=== PATIENT | female | born 2005 | race Caucasian/White ===

== ENCOUNTER 2024-10-19 13:16 | Outpatient (REF) | payer OTHER, SELFPAY ==
[2024-10-19 14:46] LABS: MANUAL DIFF FLAG NO
[2024-10-19 15:13] LABS: Basophils Percent Auto 0.9 % (0-2); Eosinophils Absolute Auto 0.1 X10*3/uL (0.0-0.4); Eosinophils Percent Auto 1.7 % (0-4); Hematocrit 39.1 % (37.0-47.0); Hemoglobin 13.1 g/dl (12.0-16.0); Imm Gran Abs Auto 0.01 X10*3/uL (0.00-0.03); Imm Gran Pct Auto 0.2 % (0.0-0.4); Lymphocytes Absolute Auto 1.5 X10*3/uL (1.2-4.9); Mean Corpuscular HGB Conc 33.5 g/dl (31.0-35.0); Mean Corpuscular Volume 86.5 fL (80.0-98.0); Mean Platelet Volume 10.2 fL (9.4-12.3); Monocytes Absolute Auto 0.4 X10*3/uL (0.1-1.2); Monocytes Percent Auto 7.6 % (2-11); Neutrophils Absolute Auto 2.6 x10*3/uL (2.0-8.3); Neutrophils Percent Auto 56.6 % (45-73); Platelet Count 236 X10*3/uL (160-400); Red Blood Count 4.52 X10*6/uL (4.20-5.50); Red Cell Distribution Width 12.7 % (11.0-16.0); White Blood Count 4.6 X10*3/uL (4.8-10.8)
[2024-10-19 15:44] LABS: Alanine Aminotransferase 29 U/L (0-31); Albumin Level 4.6 g/dL (3.5-5.0); Anion Gap 11 (12-20); Aspartate Amino Transferase 24 U/L (5-31); Bilirubin Total 0.8 mg/dL (0.0-1.0); Blood Urea Nitrogen 12 mg/dL (9-16); Carbon Dioxide 26 mmol/L (22-29); Chloride 107 mmol/L (96-108); Estimated Glomerular Filt Rate > 60; Glucose Random 91 mg/dL (60-115); Iron 78 mcg/dL (30-160); Percent Iron Saturation 21 % (15-50); Potassium 4.4 mmol/L (3.3-5.1); Sodium 140 mmol/L (135-145); Total Iron Binding Capacity 364 mcg/dL (228-428); Total Protein 8.3 g/dL (6.5-8.0); Unsaturated Iron Binding 286 ug/dL
[2024-10-19 15:58] LABS: Alkaline Phosphatase 131 U/L (39-117); Free T4 (Free Thyroxine) 1.03 ng/dL (0.71-1.85); TSH reflex Free T4 1.25 uIU/mL (0.32-4.0); Vitamin D 25-OH Total 15.9 ng/mL (>30)
[2024-10-19 16:10] LABS: Folate 10.7 ng/mL (> or = 4.0); Vitamin B12 494 pg/mL (200-900)
== END 2024-10-19 13:17 | disposition home or self-care (01) ==
LOC: HO.LAB 13:16
PROVIDERS: PCP Internal Medicine
DX: Z76.89 Persons encountering health services in other specified circumstances (principal); F32.A Depression, unspecified; F41.9 Anxiety disorder, unspecified; R41.840 Attention and concentration deficit; L65.9 Nonscarring hair loss, unspecified; G47.10 Hypersomnia, unspecified; R00.2 Palpitations; Z00.00 Encounter for general adult medical examination without abnormal findings
CPT/HCPCS: 36415; 80053; 82306; 82607; 82746; 83540; 84439; 84443; 85025

== ENCOUNTER 2024-10-19 13:16 | Outpatient (AMB) | payer OTHER, SELFPAY ==
--- NOTE | 2024-10-19 13:33 | A.OFFPC_ITS ---
Vital Signs 10/19/24 13:35 Height 4 ft 11.84 in Weight 144 lb BMI 28.3 BP 110/76 Blood Pressure Location Lt brachial Position Sitting Pulse 74 Pulse Source Pulse Oximeter Temp 96.9 F Temp Source Temporal Artery Scan Pulse Oximetry (%) 99 Oxygen Delivery Method Room Air Intake Visit Reasons: establish care Intake Note: Patient is a new patient here to establish care for Anxiety, Depression, ADHD. Transferring care from unknown. Medical records have not been requested and have not received. Tubing Oiler Required: No Multi Line Claims Adjuster: Not Required per policy Accompanied by: Self / Same As Patient Allergies No Known Allergies Allergy (Verified 10/19/24 13:44) Medication List - Last Reconciled 10/19/24 by Perla Godoy PA-C No Known Home Meds Tobacco use date assessed: 10/19/24 Dental Screening Dental Screen Date: 10/19/24 Did you have a dental visit in the last 12 months?: Yes Did you have a dental problem in the last 6 months where you did not have access to dental care?: No Was dental information given to patient?: Patient has dentist HPI establish care HPI Details 18-year-old female coming to the office for the 1st time. Presenting with a comprehensive wellness and mental health evaluation. She has experienced anxiety and depression for which she tried several medications including Zoloft, bupropion, and Lexapro but reported significant side effects and insufficient relief. She reports alopecia with substantial hair loss, particularly noted during showers, and has a family history of hair thinning. Suspected sleep apnea is evidenced by bruxism and fatigue upon awakening; an at- home sleep study has been proposed. She experiences intermittent episodes of palpitations and dizziness that typically last around 30 seconds before resolving spontaneously.. ADHD was suspected but no formal diagnosis was recorded. Prior use of Adderall was mentioned. She has a history of consulting a therapist, beneficial, but not re-engaged since age 14. [facility] Surgical History No pertinent past surgical history Family History (Updated 10/19/24 @ 13:50 by Perla Godoy PA-C) Mother Breast cancer Other Mental health disorder Substance use disorder Social History Housing: Apartment Alcohol intake: never Patient Tobacco Use Status: Never used Tobacco e-Cigarette/Vaping Use: Never Used Second Hand Smoke Exposure: No service: No Current occupational status: unemployed Cognitive needs: No Hearing needs: No Vision needs: No Female Reproductive History Menstrual control method: none Total pregnancies: 0 Questionnaire PHQ-9 Over the last 2 weeks, how often have you been bothered by any of the following problems? 1. Little interest or pleasure in doing things: not at all 2. Feeling down, depressed, or hopeless: not at all 3. Trouble falling or staying asleep, or sleeping too much: not at all 4. Feeling tired or having little energy: not at all 5. Poor appetite or overeating: not at all 6. Feeling bad about yourself - or that you are a failure or have let yourself or your family down: not at all 7. Trouble concentrating on things, such as reading the newspaper or watching television: not at all 8. Moving or speaking so slowly that other people could have noticed. Or the opposite - being so fidgety or restless that you have been moving around a lot more than usual: not at all 9. Thoughts that you would be better off or of hurting yourself in some way: not at all Total score: 0 Depression Screening Interpretation: Negative Depression Screening Done: Yes Source: Developed by Drs. Hernan High, India Manning, Bentlye Trujillo and colleagues, with an educational lynn from [employer]. Thrive Questionnaire Date Thrive assessed: 10/19/24 I am a: Patient What is your living situation today?: I have a steady place to live Within the past 12 months, did the food you bought not last and you didn't have the money to get more?: Never true Within the past 12 months, did you worry whether your food would run out before you got money to buy more?: Never true Do you have trouble paying for medicines?: No Do you have trouble getting transportation to medical appointments?: No Do you have trouble paying your heating and electricity bill?: No Do you have trouble taking care of your child, family member or friend?: No Do you have trouble with day-to-day activities such as bathing, preparing meals, shopping, managing finances, etc.?: No Are you currently unemployed and looking for a job?: No Are you interested in more education?: No Please select the resources that you would like help with: None Currently or been in a relationship where the following occur: No concerns reported THRIVE Score: 0 AUDIT C Alcohol Use Questionnaire (AUDIT-C) 1. How often do you have a drink containing alcohol?: Never Total Score: 0 MARK-7 AMB Questionnaire MARK-7 Date MARK - 7 assessed: 10/19/24 Feeling nervous, anxious, or on edge: 0 = Not at all Not being able to stop or control worryin = Not at all Worrying too much about different things: 0 = Not at all Trouble relaxin = Not at all Being so restless that it is hard to sit still: 0 = Not at all Becoming easily annoyed or irritable: 0 = Not at all Feeling afraid as if something awful might happen: 0 = Not at all Total MARK-7 score (0-4 normal; 5-9 mild; 10-14 moderate; 15-21 severe): 0 Source: Developed by Drs. Hernan High, India Manning, Bentley Trujillo and colleagues, with an educational lynn from [employer]. Review of Systems Const Denies body aches, Denies chills, Denies fever(s), Denies headache(s) and Denies poor appetite Eyes Reports no additional complaints ENT Denies dizziness and Denies headache(s) Card Denies chest pain, Denies syncope, Denies edema, Reports irregular heart rhythm, Reports lightheadedness and Denies dyspnea Resp Denies cough and Denies dyspnea GI Denies abdominal pain, Denies constipation, Denies diarrhea, Denies nausea and Denies vomiting Reports no additional complaints Musc Reports no additional complaints and Denies abnormal gait Skin/Breast Reports system reviewed and no additional complaints, except as documented Neuro Denies abnormal gait, Denies dizziness, Denies syncope and Denies headache(s) Psych Reports no additional complaints Physical exam (Primary Care) Vital Signs: Last Vital Signs Temp 96.9 F 10/19/24 13:35 Pulse 74 10/19/24 13:35 BP 110/76 10/19/24 13:35 Pulse Ox 99 10/19/24 13:35 Oxygen Delivery Method Room Air 10/19/24 13:35 BMI result Body Mass Index 28.3 Tobacco/Smoking Status: Tobacco use Status Tobacco use date assessed 10/19/24 10/19/24 13:42 Patient Tobacco Use Status Never used Tobacco 10/19/24 13:42 e-Cigarette/Vaping Use Never Used 10/19/24 13:42 PHQ-9: PHQ-9 Score PHQ-9: Total score 0 10/19/24 13:42 Depression Screening Interpretation: Negative Thrive Assessment: Date of Thrive Assessment Date Thrive assessed 10/19/24 10/19/24 13:42 Currently or been in a relationship where the following occur: No concerns reported Const General: cooperative, healthy appearing, comfortable and no acute distress Orientation/consciousness: patient oriented x3 HENMT Head: Yes normocephalic Ears: hearing grossly normal bilaterally General nose exam: Normal external nose present Eyes General: appearance normal, both eyes and all related structures Conjunctivae: conjunctivae normal Neck Neck: Yes full ROM and Yes no lymphadenopathy Resp Effort & Inspection: normal respiratory effort Auscultation: clear to auscultation bilaterally, no crackles, no rales, no rhonchi and no wheezes Cardio Rate: regular rate Rhythm: regular rhythm Skin General skin exam: no rashes or lesions noted Neuro General: patient oriented x3 Gait exam (Neuro): Normal gait present Extrem General: Yes normal to inspection, Yes full ROM and No edema Psych Affect: normal affect Attitude: cooperative Insight: Good insight present (Psych) Judgement: Good judgement present (Psych) Coding Level of Care Code New Pt Level 4 (96425) Diagnoses Depression F32.A Anxiety F41.9 Difficulty concentrating R41.840 Hair thinning L65.9 Hypersomnolence G47.10 Palpitations R00.2 Assessment & Plan Assessment & Plan (1) Depression: Code(s): F32.A - Depression, unspecified Category: Medical Plan: The patient will be referred for psychiatric evaluation to address the management of anxiety and depression, with concurrent referral to a counselor for supportive therapy. (2) Anxiety: Code(s): F41.9 - Anxiety disorder, unspecified Category: Medical Plan: The patient will be referred for psychiatric evaluation to address the manageme nt of anxiety and depression, with concurrent referral to a counselor for supportive therapy. (3) Difficulty concentrating: Code(s): R41.840 - Attention and concentration deficit Category: Medical Plan: The patient's interest in confirming a suspected ADHD diagnosis will be considered in the psychiatric evaluation. (4) Hair thinning: Code(s): L65.9 - Nonscarring hair loss, unspecified Category: Medical Plan: Ordered for blood work to look for underlying cause. Advised patient she may use [id number] hair skin and nails supplement. Consider referral to Dermatology (5) Hypersomnolence: Code(s): G47.10 - Hypersomnia, unspecified Category: Medical Plan: An at-home sleep study will be administered to evaluate suspected sleep apnea related to bruxism. (6) Palpitations: Code(s): R00.2 - Palpitations Category: Medical Plan: Given the persistent intermittent palpitations, a Holter monitor will be suggested to assess cardiac rhythm abnormalities. Patient notes reduced recurrence in the last several years. Plan This note was constructed using voice recognition software. While every effort has been made to ensure accuracy and risk control analyst, still areas may have been included sometimes these areas may affect the content or meeting of the given symptoms. Total time spent caring for the patient today was 30 minutes. This i ncludes time spent before the visit reviewing the chart, time spent during the visit, and time spent after the visit and documentation. Patient was informed and verbally consented to the use of an ambient scribe for clinic note documentation during this visit. Orders: Orders TSH reflex Free T4 Today Z00.00 - Encounter for general adult medical examination without abnormal findings Comprehensive Met. Panel Today Z00.00 - Encounter for general adult medical examination without abnormal findings Complete Blood Count Auto Diff Today Z00.00 - Encounter for general adult medical examination without abnormal findings CT NG by PCR Today Z00.00 - Encounter for general adult medical examination without abnormal findings Vitamin B12 and Folate Today Z00.00 - Encounter for general adult medical examination without abnormal findings Vitamin D 25-OH Total Today Z00.00 - Encounter for general adult medical examination without abnormal findings Free T4 (Free Thyroxine) Today Z00.00 - Encounter for general adult medical examination without abnormal findings IRON PROFILE Today L65.9 - Nonscarring hair loss, unspecified RT home sleep study Today G47.10 - Hypersomnia, unspecified ECG 3 day holter monitor Today R00.2 - Palpitations Referrals Counseling Referral F32.A - Depression, unspecified, F41.9 - Anxiety disorder, unspecified, R41.840 - Attention and concentration deficit Psychiatry Outpatient Consultation Service F32.A - Depression, unspecified, F41.9 - Anxiety disorder, unspecified, R41.840 - Attention and concentration deficit PATROL INSPECTOR Referral Z12.4 - Encounter for screening for malignant neoplasm of cervix
[2024-10-19 13:35] VITALS: BP 110/76; PULSE 74; TEMP 36.1; O2SAT 99; BMI 28.3
== END 2024-10-19 14:10 | disposition home or self-care (01) ==
PROVIDERS: PCP Internal Medicine
DX: F32.A Depression, unspecified (principal); F41.9 Anxiety disorder, unspecified; R41.840 Attention and concentration deficit; L65.9 Nonscarring hair loss, unspecified; G47.10 Hypersomnia, unspecified; R00.2 Palpitations

== ENCOUNTER 2025-05-20 08:51 | Outpatient (REF) | payer OTHER, SELFPAY ==
[2025-05-20 17:00] LABS: Bacterial Vaginosis PCR NEGATIVE (Negative); Candida Group PCR NOT DETECTED (Not Detect); Candida glab krusei PCR NOT DETECTED (Not Detect); Trichomonas vaginalis PCR NOT DETECTED (Not Detect)
[2025-05-20 17:32] LABS: CT PCR NOT DETECTED (Not Detect.); NG PCR NOT DETECTED (Not Detect.)
== END 2025-05-20 08:52 | disposition home or self-care (01) ==
LOC: HO.LNP 08:51
PROVIDERS: Visit Provider Advanced Practice Midwife
DX: Z01.411 Encounter for gynecological examination (general) (routine) with abnormal findings (principal); Z11.3 Encounter for screening for infections with a predominantly sexual mode of transmission; N92.6 Irregular menstruation, unspecified; Z20.2 Contact with and (suspected) exposure to infections with a predominantly sexual mode of transmission
CPT/HCPCS: 81515; 87491; 87591; 88175

== ENCOUNTER 2025-05-20 08:51 | Outpatient (AMB) | payer OTHER, SELFPAY ==
--- NOTE | 2025-05-20 09:05 | MHC.OFFVIS ---
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 Sometimes will skip a month and painful. 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 She is 19 years old she moved here from [place] last year with her family. She is going to [employer] taking liberal arts she started in the spring. She is currently not sexually active but she was about a year ago she used condoms for control. She just recently started keeping track of her periods and she has been noticing that is sometimes it can be late and sometimes she skips it is hard to say how often in thinking about it it is more often that it is a little bit late then skipping altogether. She notices that when she is late the next period is heavier and crampier. 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 her family is 1 that does not believe in taking a lot of medicines. This summer she started trying to make some positive changes and started working out and going to the gym much more regularly when she was only taking 1 class and she noticed that is making her feel better she is also trying to eat well and be more conscious of what she eats. Her family tends to cook all their meals at home and has a [place] background so they try to keep a very well-balanced diet. The move here from [place] was stressful last year and she used to be an active kid so she looked at what was different and tried to get back to that and notices it makes her feel better. She has no plans or intentions to become sexually active any time soon so does not think she wants any other method of control. She has a lot of interests so she is very glad that she can take so many different classes at [employer]. [facility] Surgical History No pertinent past surgical history Family History Mother Breast cancer Other Mental health disorder Substance use disorder Social History Housing: Apartment Alcohol intake: never Patient Tobacco Use Status: Never used Tobacco e-Cigarette/Vaping Use: Never Used Second Hand Smoke Exposure: No service: No Current occupational status: unemployed Cognitive needs: No Hearing needs: No Vision needs: No Female Reproductive History Menstrual Age of Menarche: 8 Duration of menses: 3-5 days Date of last menstrual period: 05/14/25 control method: none Total pregnancies: 0 History of abnormal pap smear: No Physical Exam Vital Signs: Last Vital Signs BP 94/62 05/20/25 09:16 BMI result Body Mass Index 27.5 Const General: healthy appearing, comfortable, no acute distress, well developed and alert Nutritional Appearance: average body habitus Orientation/consciousness: patient oriented x3 Limitations: no limitations HEENT Head: Yes normocephalic Neck Neck: Yes normal visual inspection Chest Chest palpation & inspection: normal inspection of the chest Breast/axilla inspection: normal inspection of the breasts and normal inspection of the axillae Breast/axilla palpation: normal palpation of the breasts and normal palpation of the axillae Resp Effort & Inspection: normal respiratory effort GI Inspection: Yes normal to inspection, No Abdominal wall edema and No distended Palpation (GI): Soft to palpation and nontender Other: External exam within normal limits vagina is pink and moist normal mucus consistent with a approaching ovulation nulliparous cervix pink smooth mobile healthy nontender uterus small not enlarged nontender adnexa not enlarged nontender good tone with Kegel Pap smear and testing for STIs done discussion of common finding of bacterial vaginosis that may or may not need treatment depending if she has any symptoms ( which she does not today) took place in the discussion. General: Yes bladder normal to palpation External Female Exam: normal external appearance and normal appearance of the urethra Speculum Exam - Vagina: normal appearance of the vagina, normal palpation and normal vaginal discharge Speculum Exam - Cervix: normal appearance of the cervix, normal palpation and nontender Bimanual exam- vagina & uterus: normal bimanual exam, normal palpation, uterine size normal, bladder normal to palpation, consistency normal, normal palpation, uterine mobility normal, uterine shape normal, No Cervical tenderness present, non-tender and no cervical motion tenderness Bimanual Exam- Adnexa, other: normal adnexae, no masses, normal and No adnexal tenderness Neuro General: patient oriented x3 Assessment & Plan Assessment & Plan (1) Well woman exam with routine gynecological exam: Code(s): Z01.419 - Encounter for gynecological examination (general) (routine) without abnormal findings Category: Medical (2) Encounter for screening examination for sexually transmitted disease: Code(s): Z11.3 - Encounter for screening for infections with a predominantly sexual mode of transmission Category: Medical (3) Papanicolaou smear for cervical cancer screening: Code(s): Z12.4 - Encounter for screening for malignant neoplasm of cervix Category: Medical (4) Menstrual periods irregular: Code(s): N92.6 - Irregular menstruation, unspecified Category: Medical Plan Discussed all of the issues in HPI teaching done especially around healthy BMI and normal BMI being more associated with normal regular menses and the when 1 becomes heavier the imbalance of hormones contributes to irregular menses and in the extreme can be associated with PCOS symptoms which she has heard of because her friend has it. Discussed keeping track of her cycle and all the way she can do it if she does not want to stay on an yves. also discussed ways to manage dysmenorrhea including the option of control pills which she is not interested in at this time. Applauded the use of condoms I offered testing for STIs which she is interested in and she can go to the lab to get blood work whenever she wishes and she is on the portal so she may check the portal for results we would certainly call her if there is anything positive 1st Pap was done as well as testing for gonorrhea chlamydia trich bacterial vaginosis and yeast and again I did discuss how bacterial vaginosis may often show up in the test but it does not mean she has it. RTC 1 year she is going to check with her [facility] office about a psychology referral that she has not heard anything about yet. -----Discussed in this visit the following: healthy balanced diet, regular and consistent exercise, getting recommended health screens, doing the best she can for her particular health concerns, kegel exercises, pap smear screening and followup recommendations, mammography screening and SBE, normal changes in cycles in her life stage--- . Orders: Orders Hepatitis C Antibody Today N92.6 - Irregular menstruation, unspecified, Z01.419 - Encounter for gynecological examination (general) (routine) without abnormal findings, Z11.3 - Encounter for screening for infections with a predominantly sexual mode of transmission, Z12.4 - Encounter for screening for malignant neoplasm of cervix HIV Ab/Ag Today N92.6 - Irregular menstruation, unspecified, Z01.419 - Encounter for gynecological examination (general) (routine) without abnormal findings, Z11.3 - Encounter for screening for infections with a predominantly sexual mode of transmission, Z12.4 - Encounter for screening for malignant neoplasm of cervix Syphilis Screen Today N92.6 - Irregular menstruation, unspecified, Z01.419 - Encounter for gynecological examination (general) (routine) without abnormal findings, Z11.3 - Encounter for screening for infections with a predominantly sexual mode of transmission, Z12.4 - Encounter for screening for malignant neoplasm of cervix Hepatitis B Surface Antigen Today N92.6 - Irregular menstruation, unspecified, Z01.419 - Encounter for gynecological examination (general) (routine) without abnormal findings, Z11.3 - Encounter for screening for infections with a predominantly sexual mode of transmission, Z12.4 - Encounter for screening for malignant neoplasm of cervix Coding Level of Care Code New Pt Prev Care 18-39yr([id number] Diagnoses Well woman exam with routine gynecological exam Z01.419 Encounter for screening examination for sexually transmitted disease Z11.3 Papanicolaou smear for cervical cancer screening Z12.4 Menstrual periods irregular N92.6
[2025-05-20 09:16] VITALS: BP 94/62; BMI 27.5
--- OUTSIDE RECORDS SUMMARY | 2025-05-20 09:17 | XMS_ITS | Patient Health Record ---
Author Organization [employer] DORIS araujo Address [address] [facility] [address] [place] [address] Support Name Relationship Address Phone WES ALICEA Guarantor Unknown Allergies No Known Allergies Reason For Referral No Information Social History Tobacco Use: Social History Observation Description Date Details (start date - stop date) Never Smoker NA - NA Social History Alcohol Screen Social Info Question Answer Notes Alcohol Did you have a drink containing alcohol i n the past year? No Interpretation Negative Tobacco Use: Social Info Question Answer Notes TOBACCO USE/SMOKING: Patient is a: nonsmoker Additional Details Category Social Info Options Details Substance Abuse CURRENT SUBSTANCE US E AND LEVEL OF SUBSTANCE ABUSE THC on occasion Problems Problem Type SNOMED Code ICD Code Onset Dates Problem Status W/U Status Risk Notes Problem Anxiety disorder ([id number]) Anxiety disorder, unspecified (F41.9) Active confirmed Problem Severe major depression, single episode, without psychotic features ([id number]) Major depressive disorder, single episode, severe without psychotic features (F32.2) Active confirmed Plan Of Treatment No Information
== END 2025-05-20 10:30 | disposition home or self-care (01) ==
LOC: HO.HWS 08:51
PROVIDERS: Visit Provider Advanced Practice Midwife
DX: Z01.419 Encounter for gynecological examination (general) (routine) without abnormal findings (principal); Z11.3 Encounter for screening for infections with a predominantly sexual mode of transmission; N92.6 Irregular menstruation, unspecified
CPT/HCPCS: 99385; 99459

== ENCOUNTER 2025-07-18 10:25 | Outpatient (AMB) | payer OTHER, SELFPAY ==
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
== END 2025-07-18 13:21 | disposition home or self-care (01) ==
LOC: HO.HOP 10:25
PROVIDERS: Visit Provider Clinical Nurse Specialist Psychiatric/Mental Health
DX: F41.1 Generalized anxiety disorder (principal)
CPT/HCPCS: 90792

== ENCOUNTER → 2025-07-18 10:25 | Outpatient (BNVA) | payer OTHER, SELFPAY | PROVIDERS: Visit Provider Clinical Nurse Specialist Psychiatric/Mental Health | DX: F41.1 Generalized anxiety disorder (principal) | CPT/HCPCS: 90792 ==

== ENCOUNTER 2025-08-15 11:37 | Outpatient (AMB) | payer OTHER, SELFPAY ==
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
--- OUTSIDE RECORDS SUMMARY | 2025-08-15 13:38 | XMS_ITS | Patient Health Record ---
Author Organization [employer] DORIS araujo Address [address] [facility] [address] [place] [address] Support Name Relationship Address Phone WES ALICEA [...] W/U Status Risk Notes Problem Anxiety disorder ([id number]) Anxiety disorder, unspecified (F41.9) Active confirmed Problem Severe major depression, single episode, without psychotic features ([id number]) Major depressive disorder, single episode, severe without psychotic features (F32.2) Active confirmed Plan Of Treatment No Information
== END 2025-08-15 12:02 | disposition home or self-care (01) ==
LOC: HO.HOP 11:37
PROVIDERS: Visit Provider Clinical Nurse Specialist Psychiatric/Mental Health
DX: F41.1 Generalized anxiety disorder (principal)
CPT/HCPCS: 99214